=== PATIENT | female | born 1980 | race Caucasian/White ===

== ENCOUNTER 2016-12-13 08:31 | Emergency (ER) | payer MEDICAID, OTHER ==
[~2016-12-13] VITALS: Ht 188 cm; Wt 117.0 kg
[~2016-12-13 08:31] MED LIST: ESTR25PO42 SQ; SPIR100T2 PO
[2016-12-13 08:35] VITALS: BP 134/84
[2016-12-13] MEDS ORDERED: PROPARACAINE OPHTH 0.5%, 15ML ONE (09:14)
[2016-12-13] MEDS ORDERED: FLUORESCEIN OPHTHALMIC 1 MG STRIP ONE (09:14)
== END 2016-12-13 09:53 | disposition home or self-care (01) ==
LOC: ED 09:47
DX: H10.022 Other mucopurulent conjunctivitis, left eye (principal); J45.909 Unspecified asthma, uncomplicated
CPT/HCPCS: 99283

== ENCOUNTER 2017-12-22 13:35 | Emergency (ER) | payer OTHER ==
[~2017-12-22] VITALS: Ht 188 cm; Wt 122.1 kg
[~2017-12-22 13:35] MED LIST changes: -SPIR100T2 PO; +SPIR100T4 PO
[2017-12-22] MEDS ORDERED: DIPH,PERTUSS(ACELL),TET VAC/PF 0.5 ML IM-VACC ONE ×2 (14:16→14:30)
[2017-12-22] MEDS ORDERED: RABIES VACCINE /PF 2.5 UNITS IM-VACC ONE (14:30)
[2017-12-22 15:27] VITALS: BP 150/82
== END 2017-12-22 15:30 | disposition home or self-care (01) ==
LOC: ED 14:59
DX: S61.250A Open bite of right index finger without damage to nail, initial encounter (principal); J45.909 Unspecified asthma, uncomplicated; W53.81XA Bitten by other rodent, initial encounter; Y93.89 Activity, other specified; Y99.8 Other external cause status; Y92.89 Other specified places as the place of occurrence of the external cause
CPT/HCPCS: 90471; 90472; 90675; 90715

== ENCOUNTER 2017-12-25 18:40 | Emergency (ER) | payer OTHER ==
[~2017-12-25] VITALS: Ht 188 cm; Wt 127.2 kg
[2017-12-25 18:49] VITALS: BP 131/86
[2017-12-25] MEDS ORDERED: RABIES VACCINE /PF 2.5 UNITS IM-VACC ONE (19:30)
[2017-12-25] MEDS ORDERED: ALBU0.63 NEB (19:33)
== END 2017-12-25 20:02 | disposition home or self-care (01) ==
LOC: ED 19:15
DX: R68.89 Other general symptoms and signs (principal); Z29.14 Encounter for prophylactic rabies immune globulin; J45.909 Unspecified asthma, uncomplicated
CPT/HCPCS: 90471; 90675; 99283

== ENCOUNTER 2017-12-29 22:04 | Emergency (ER) | payer OTHER ==
[~2017-12-29] VITALS: Ht 190.5 cm; Wt 124.1 kg
[~2017-12-29 22:04] MED LIST changes: +ALBU0.63 NEB
[2017-12-29 22:08] VITALS: BP 134/84
[2017-12-29] MEDS ORDERED: RABIES VACCINE /PF 2.5 UNITS IM-VACC ONE (22:30)
== END 2017-12-29 23:07 | disposition home or self-care (01) ==
LOC: ED 22:20
DX: Z28.89 Immunization not carried out for other reason (principal)
CPT/HCPCS: 99281